=== PATIENT | female | born 1990 | race Caucasian/White ===

== ENCOUNTER 2016-12-24 21:20 | Emergency (ER) | payer MEDICAID, OTHER ==
[~2016-12-24] VITALS: Ht 160 cm; Wt 81.0 kg
[2016-12-24 21:23] VITALS: BP 143/99
[2016-12-24] MEDS ORDERED: CIPROFLOXACIN HCL 0.2%/HYDROCORT 1% 10 ML OTIC SUSPENSION AD ONE (21:45)
[2016-12-24] MEDS ORDERED: ACETAMINOPHEN 325 MG TABLET PO ONE (22:00)
== END 2016-12-24 22:02 | disposition home or self-care (01) ==
LOC: EMS 21:21
DX: H60.91 Unspecified otitis externa, right ear (principal)
CPT/HCPCS: 99283

== ENCOUNTER 2017-06-13 21:47 | Emergency (ER) | payer OTHER ==
[~2017-06-13] VITALS: Ht 160 cm; Wt 72.7 kg
[2017-06-13 22:10] VITALS: BP 125/72
[2017-06-13 22:48] LABS: APPEARANCE,URINE TURBID (CLEAR); BILIRUBIN,URINE NEGATIVE (NEGATIVE); GLUCOSE, URINE (UA) NEGATIVE (NEGATIVE); KETONES,URINE NEGATIVE (NEGATIVE); LEUKOCYTE ESTERASE ,URINE MODERATE (NEGATIVE); NITRATE,URINE NEGATIVE (NEGATIVE); OCCULT BLOOD,URINE LARGE (NEGATIVE); PROTEIN,URINE NEGATIVE (NEGATIVE)
[2017-06-13 23:36] LABS: AMORPHOUS SEDIMENT,UR Many /LPF (None Seen); BACTERIA,URINE Few /HPF (None Seen); SQUAMOUS EPITHELIAL CELL,UR Moderate /LPF (None Seen)
== END 2017-06-13 23:03 | disposition home or self-care (01) ==
LOC: EMS 21:48
DX: B37.3 Candidiasis of vulva and vagina (principal); K80.20 Calculus of gallbladder without cholecystitis without obstruction
CPT/HCPCS: 87086; 87491; 87591; 99284

== ENCOUNTER 2022-12-04 17:09 | Emergency (ER) | payer OTHER ==
[~2022-12-04] VITALS: Ht 160 cm; Wt 86.4 kg
[2022-12-04] MEDS ORDERED: IBUP-45 PO (17:11)
[2022-12-04 17:12] VITALS: TEMP 98.4
[2022-12-04] MEDS ORDERED: ACETAMINOPHEN/CODEINE 300-30 MG TABLET PO ONE (19:00)
[2022-12-04] MEDS ORDERED: IBUPROFEN 600 MG TABLET PO ONE (19:00)
[2022-12-04 20:30] VITALS: BP 124/78; PULSE 88; RESP 16
[2022-12-04] MEDS ORDERED: IBUP-1554 PO (20:31)
[2022-12-04] MEDS ORDERED: ACET-2080 PO (20:31)
== END 2022-12-04 21:24 | disposition home or self-care (01) ==
LOC: EMS 17:10
DX: S83.92XA Sprain of unspecified site of left knee, initial encounter (principal); K80.20 Calculus of gallbladder without cholecystitis without obstruction; Z90.49 Acquired absence of other specified parts of digestive tract; X58.XXXA Exposure to other specified factors, initial encounter; Y93.89 Activity, other specified; Y92.89 Other specified places as the place of occurrence of the external cause; Y99.8 Other external cause status
CPT/HCPCS: 29505; 99283

== ENCOUNTER 2023-01-12 21:15 | Emergency (ER) | payer OTHER ==
[~2023-01-12] VITALS: Ht 160 cm; Wt 88.1 kg
[~2023-01-12 21:15] MED LIST: ACET-2080 PO; IBUP-1554 PO; IBUP-45 PO
[2023-01-12 22:30] VITALS: BP 129/67; PULSE 71; RESP 16; TEMP 98.3
[2023-01-12] MEDS ORDERED: AMOX250C4 PO (22:43)
[2023-01-12] MEDS: KETOROLAC TROMETHAMINE 30 MG/ML VIAL IM ONE (22:51)
[2023-01-12] MEDS: AMOXICILLIN TRIHYDRATE 250 MG CAPSULE PO ONE (22:52)
== END 2023-01-12 23:26 | disposition home or self-care (01) ==
LOC: EMS 21:16
DX: K08.89 Other specified disorders of teeth and supporting structures (principal); Z90.49 Acquired absence of other specified parts of digestive tract
CPT/HCPCS: 99283; 96372; J1885